=== PATIENT | male | born 1975 | race African-American/Black ===

== ENCOUNTER 2018-09-23 11:19 | Inpatient (IN) | payer MEDICAID, OTHER ==
[~2018-09-23] VITALS: Ht 170.2 cm; Wt 91.2 kg
[2018-09-23] MEDS ORDERED: NITROGLYCERIN OINT 1GM/INCH UDPKT TD ONE (12:00)
[2018-09-23] MEDS ORDERED: ASPIRIN 81MG TABLET PO ONE (12:00)
[2018-09-23 12:24] LABS: BASOPHILS % 0.8 % (0.0-2.0); EOSINOPHILS % 10.1 % (0.0-5.0); HEMATOCRIT. 47.8 % (42.0-52.0); HEMOGLOBIN. 15.7 g/dL (14.0-18.0); LYMPHOCYTES % 39.4 % (20.0-50.0); MEAN CORPUSCULAR HEMOGLOBIN 27.6 pg (28.0-32.0); MEAN CORPUSCULAR VOLUME 83.9 fL (80.0-94.0); MONOCYTES % 10.3 % (2.0-8.0); NEUTROPHILS % 39.4 % (40.0-76.0); PLATELET 146 x1000/uL (130-400); RED CELL DISTRIBUTION WIDTH 17.5 % (11.6-14.6)
[2018-09-23 12:30] LABS: CHLORIDE 109 mEq/L (98-107)
[2018-09-23 12:34] LABS: INR 1.3; PARTIAL THROMBOPLASTIN TIME 25.7 sec (23.4-31.0); PROTHROMBIN TIME 12.9 sec (9.6-11.0)
[2018-09-23] MEDS ORDERED: FUROSEMIDE 40MG/4ML VIAL IVP ONE (12:45)
[2018-09-23] MEDS ORDERED: ONDANSETRON HCL 4MG/2ML INJ IV PRN (14:30)
[2018-09-23] MEDS ORDERED: KETOROLAC 15MG/ML VIAL IV PRN (14:30)
[2018-09-23] MEDS ORDERED: CLONIDINE 0.1MG TABLET PO PRN (14:30)
[2018-09-23] MEDS ORDERED: ZOLPIDEM TARTRATE 5MG TABLET PO PRN (14:30)
[2018-09-23] MEDS ORDERED: MAGNESIUM/ALUMINUM HYDROXIDE/SIMETHICONE 30ML UDC PO PRN (14:30)
[2018-09-23] MEDS ORDERED: ACETAMINOPHEN 325MG TABLET PO PRN (14:30)
[2018-09-23] MEDS ORDERED: DOCUSATE SODIUM 100MG CAPSULE PO PRN (14:30)
[2018-09-23] MEDS ORDERED: NITROGLYCERIN 0.4MG TABLET SL SL PRN (14:30)
[2018-09-23] MEDS ORDERED: GUAIFENESIN 200MG/10ML SUGAR FREE UDC PO PRN (14:30)
[2018-09-23] MEDS ORDERED: IPRATROPIUM/ALBUTEROL 0.5-3(2.5)MG/3ML NEB INH PRN (14:30)
[2018-09-23 14:53] VITALS: BP 135/82
[2018-09-23 15:00] VITALS: BP 135/82
[2018-09-23] MEDS: IPRATROPIUM/ALBUTEROL 0.5-3(2.5)MG/3ML NEB HHN SCH ×2 (15:37→20:06)
[2018-09-23] MEDS ORDERED: ASPI-986 MT (16:09)
[2018-09-23] MEDS ORDERED: LOSA50TA3 MT (16:11)
[2018-09-23] MEDS ORDERED: FURO-151 PO (16:13)
[2018-09-23] MEDS ORDERED: POTA8CAP10 MT (16:24)
[2018-09-23 16:29] VITALS: BP 103/63
[2018-09-23 18:33] VITALS: BP 140/70
[2018-09-23] MEDS: MONTELUKAST SODIUM 10MG TABLET PO SCH (18:35)
[2018-09-23] MEDS: CARVEDILOL 3.125 MG TABLET PO SCH (18:35)
[2018-09-23] MEDS: FUROSEMIDE 40MG/4ML VIAL IVP SCH (18:37)
[2018-09-23 20:00] VITALS: BP 121/70
[2018-09-23] MEDS ORDERED: FAMOTIDINE 20MG/2ML VIAL IV SCH (21:00)
[2018-09-23] MEDS: GUAIFENESIN/DM 600MG/30MG ER TAB 12HR PO SCH (21:11)
[2018-09-23] MEDS: LISINOPRIL 5MG TABLET PO SCH (21:11)
[2018-09-23] MEDS: SPIRONOLACTONE 25MG TABLET PO SCH (21:11)
[2018-09-23] MEDS: FAMOTIDINE 20MG TABLET PO SCH (21:11)
[2018-09-23] MEDS: ENOXAPARIN 30MG/0.3ML SYR SUBCUT SCH (21:12)
[2018-09-23 23:05] LABS: CLARITY URINE CLEAR (CLEAR); COLOR URINE YELLOW (YELLOW); KETONES URINE NEGATIVE (NEGATIVE); LEUKOCYTE ESTERASE URINE NEGATIVE (NEGATIVE); NITRITE URINE NEGATIVE (NEGATIVE); OCCULT BLOOD URINE NEGATIVE (NEGATIVE); PH URINE 7.5 (4.5-8.0); PROTEIN URINE NEGATIVE (NEGATIVE); SPECIFIC GRAVITY URINE 1.004 (1.005-1.030); UROBILINOGEN URINE 0.2 E.U./dL (0.2-1.0)
[2018-09-23 23:16] LABS: *AMPHETAMINES SCREEN URINE NEGATIVE (NEGATIVE); *BARBITURATES SCREEN URINE NEGATIVE (NEGATIVE); *BENZODIAZEPINES SCREEN URINE NEGATIVE (NEGATIVE); *COCAINE SCREEN URINE NEGATIVE (NEGATIVE); METHADONE URINE SCREEN NEGATIVE (NEGATIVE)
[2018-09-23 23:17] LABS: CANNABINOID URINE SCREEN NEGATIVE (NEGATIVE); OPIATES URINE SCREEN NEGATIVE (NEGATIVE); PHENCYCLIDINE URINE SCREEN NEGATIVE (NEGATIVE)
[2018-09-24] VITALS (7 sets, daily range): BP systolic 103–127; BP diastolic 63–96
[2018-09-24 00:44] LABS: CREATINE KINASE MB FRACTION 2.2 ng/mL (0.5-3.6)
[2018-09-24] MEDS: IPRATROPIUM/ALBUTEROL 0.5-3(2.5)MG/3ML NEB HHN SCH ×4 (01:06→20:32)
[2018-09-24] MEDS: FUROSEMIDE 40MG/4ML VIAL IVP SCH ×2 (06:20→17:48)
[2018-09-24] MEDS: CARVEDILOL 3.125 MG TABLET PO SCH ×2 (06:21→17:47)
[2018-09-24 07:03] LABS: CREATINE KINASE 235 IU/L (39-308)
[2018-09-24 07:04] LABS: CREATINE KINASE MB FRACTION 2.1 ng/mL (0.5-3.6)
[2018-09-24] MEDS: ENOXAPARIN 30MG/0.3ML SYR SUBCUT SCH ×2 (08:48→21:39)
[2018-09-24] MEDS: ASPIRIN 325MG EC TABLET PO SCH (08:48)
[2018-09-24] MEDS: SPIRONOLACTONE 25MG TABLET PO SCH ×2 (08:48→21:37)
[2018-09-24] MEDS: FAMOTIDINE 20MG TABLET PO SCH ×2 (08:48→21:38)
[2018-09-24] MEDS: GUAIFENESIN/DM 600MG/30MG ER TAB 12HR PO SCH ×2 (08:48→21:37)
[2018-09-24] MEDS: LISINOPRIL 5MG TABLET PO SCH ×2 (08:48→21:38)
[2018-09-24] MEDS ORDERED: FURO40TA5 MT (16:52)
[2018-09-24] MEDS ORDERED: COR25 MT (16:52)
[2018-09-24] MEDS: MONTELUKAST SODIUM 10MG TABLET PO SCH (17:48)
[2018-09-25] VITALS: BP 106/61
[2018-09-25] MEDS: IPRATROPIUM/ALBUTEROL 0.5-3(2.5)MG/3ML NEB HHN SCH ×3 (02:02→13:23)
[2018-09-25 04:00] VITALS: BP 126/77
[2018-09-25] MEDS: CARVEDILOL 3.125 MG TABLET PO SCH (06:04)
[2018-09-25] MEDS: FUROSEMIDE 40MG/4ML VIAL IVP SCH (06:05)
[2018-09-25 08:10] VITALS: BP 98/64
[2018-09-25] MEDS: ASPIRIN 325MG EC TABLET PO SCH (08:32)
[2018-09-25] MEDS: GUAIFENESIN/DM 600MG/30MG ER TAB 12HR PO SCH (08:33)
[2018-09-25] MEDS: SPIRONOLACTONE 25MG TABLET PO SCH (08:33)
[2018-09-25] MEDS: FAMOTIDINE 20MG TABLET PO SCH (08:33)
[2018-09-25] MEDS: ENOXAPARIN 30MG/0.3ML SYR SUBCUT SCH (08:34)
[2018-09-25] MEDS: LISINOPRIL 5MG TABLET PO SCH (08:34)
[2018-09-25 11:41] VITALS: BP 102/58
[2018-09-25 14:51] VITALS: BP 102/58
[2018-09-25 16:16] VITALS: BP 104/58
== END 2018-09-25 16:30 | disposition home or self-care (01) | DRG 133 ==
LOC: ER 11:19 → 5WST 13:19 → EDBEDREQ 13:21 → EDBEDREQTM 13:21 → ENRESERV 13:47
PROVIDERS: ADMIT Internal Medicine; ATTEND Internal Medicine
DX: J96.00 Acute respiratory failure, unspecified whether with hypoxia or hypercapnia (principal); N17.0 Acute kidney failure with tubular necrosis; I50.43 Acute on chronic combined systolic (congestive) and diastolic (congestive) heart failure; E44.0 Moderate protein-calorie malnutrition; I13.0 Hypertensive heart and chronic kidney disease with heart failure and stage 1 through stage 4 chronic kidney disease, or unspecified chronic kidney disease; I25.10 Atherosclerotic heart disease of native coronary artery without angina pectoris; Z60.2 Problems related to living alone; I42.9 Cardiomyopathy, unspecified; R74.0 Nonspecific elevation of levels of transaminase and lactic acid dehydrogenase [LDH]; K21.9 Gastro-esophageal reflux disease without esophagitis; J45.909 Unspecified asthma, uncomplicated; N18.9 Chronic kidney disease, unspecified; Z95.5 Presence of coronary angioplasty implant and graft; Z95.810 Presence of automatic (implantable) cardiac defibrillator; Z79.82 Long term (current) use of aspirin; I25.2 Old myocardial infarction; Z79.899 Other long term (current) drug therapy; Z82.49 Family history of ischemic heart disease and other diseases of the circulatory system; Z68.31 Body mass index [BMI] 31.0-31.9, adult
CPT/HCPCS: 36415; 71045; 80061; 80305; 82550; 82553; 83036; 83880; 84484; 93005; 93970; 94640; 96374; 99285; J1650; J1940; J7620

== ENCOUNTER 2021-01-07 12:46 | Inpatient (IN) | payer MEDICAID ==
[~2021-01-07] VITALS: Ht 170.2 cm; Wt 99.8 kg
[~2021-01-07 12:46] MED LIST: ASPI-986 MT; COR25 MT; FURO40TA5 MT; LOSA50TA3 MT; POTA8CAP20 MT
[2021-01-07 15:03] LABS: CHLORIDE 103 mEq/L (98-107)
[2021-01-07 15:12] LABS: BASOPHILS % 0.3 % (0.0-2.0); EOSINOPHILS % 8.3 % (0.0-5.0); HEMATOCRIT. 38.5 % (42.0-52.0); HEMOGLOBIN. 12.7 g/dL (14.0-18.0); LYMPHOCYTES % 32.7 % (20.0-50.0); MEAN CORPUSCULAR HEMOGLOBIN 28.5 pg (28.0-32.0); MEAN CORPUSCULAR VOLUME 86.4 fL (80.0-94.0); MEAN PLATELET VOLUME 10.8 fl (7.4-10.4); NEUTROPHILS % 52.7 % (40.0-76.0); PLATELET 152 x1000/uL (130-400); RED BLOOD CELL COUNT 4.45 mill/uL (4.7-6.1); RED CELL DISTRIBUTION WIDTH 12.9 % (11.6-14.6)
[2021-01-07] MEDS ORDERED: POTASSIUM CHLORIDE 20MEQ TABLET SR PO ONE (15:15)
[2021-01-07 20:06] LABS: CANNABINOID URINE SCREEN NEGATIVE (NEGATIVE); METHADONE URINE SCREEN NEGATIVE (NEGATIVE); OPIATES URINE SCREEN NEGATIVE (NEGATIVE); PHENCYCLIDINE URINE SCREEN NEGATIVE (NEGATIVE)
[2021-01-07 20:07] LABS: *AMPHETAMINES SCREEN URINE NEGATIVE (NEGATIVE); *BENZODIAZEPINES SCREEN URINE NEGATIVE (NEGATIVE)
[2021-01-07 20:09] LABS: *BARBITURATES SCREEN URINE NEGATIVE (NEGATIVE); *COCAINE SCREEN URINE NEGATIVE (NEGATIVE)
[2021-01-07] MEDS: CARVEDILOL 6.25 MG TABLET PO SCH (21:37)
[2021-01-07] MEDS ORDERED: LORAZEPAM 2MG/ML CPJ IV PRN (23:00)
[2021-01-07] MEDS ORDERED: ONDANSETRON HCL 4MG/2ML INJ IV PRN (23:00)
[2021-01-07] MEDS ORDERED: MORPHINE SULFATE 2 MG/ML CPJ (NOT FOR IM USE) IV PRN (23:00)
[2021-01-07] MEDS ORDERED: IPRATROPIUM/ALBUTEROL 0.5-3(2.5)MG/3ML NEB NEB PRN (23:00)
[2021-01-07] MEDS ORDERED: ACETAMINOPHEN 650MG SUPP PR PRN (23:00)
[2021-01-07] MEDS ORDERED: DIPHENHYDRAMINE 50MG/ML VIAL IV PRN (23:00)
[2021-01-07] MEDS ORDERED: HYDROCODONE/ACETAMINOPHEN 5/325MG TABLET PO PRN (23:00)
[2021-01-07] MEDS ORDERED: ACETAMINOPHEN 325MG TABLET PO PRN (23:00)
[2021-01-07] MEDS: ENOXAPARIN 30MG/0.3ML SYR SUBCUT SCH (23:35)
[2021-01-08 04:36] LABS: BASOPHILS % 0.3 % (0.0-2.0); EOSINOPHILS % 9.3 % (0.0-5.0); HEMATOCRIT. 37.9 % (42.0-52.0); HEMOGLOBIN. 12.6 g/dL (14.0-18.0); MEAN CORPUSCULAR VOLUME 87.2 fL (80.0-94.0); MEAN PLATELET VOLUME 10.4 fl (7.4-10.4); MONOCYTES % 6.2 % (2.0-8.0); NEUTROPHILS % 47.2 % (40.0-76.0); PLATELET 147 x1000/uL (130-400); RED BLOOD CELL COUNT 4.35 mill/uL (4.7-6.1)
[2021-01-08 04:42] LABS: CHLORIDE 105 mEq/L (98-107)
[2021-01-08 04:48] LABS: PHOSPHORUS 3.7 mg/dL (2.5-4.9)
[2021-01-08 04:51] LABS: CREATINE KINASE 204 IU/L (39-308)
[2021-01-08 04:52] LABS: CREATINE KINASE MB FRACTION < 1.0 ng/mL (0.5-3.6)
[2021-01-08] MEDS ORDERED: MAGNESIUM/ALUMINUM HYDROXIDE/SIMETHICONE 30ML UDC PO PRN (08:30)
[2021-01-08] MEDS ORDERED: CLONIDINE 0.1MG TABLET PO PRN (08:30)
[2021-01-08] MEDS ORDERED: DEXTROSE 50% WATER 50ML SYRINGE IV PRN ×2 (08:30)
[2021-01-08] MEDS ORDERED: DOCUSATE SODIUM 100MG CAPSULE PO PRN (08:30)
[2021-01-08] MEDS: SPIRONOLACTONE 25MG TABLET PO SCH (08:53)
[2021-01-08] MEDS: THIAMINE HCL 100MG TABLET PO SCH (09:14)
[2021-01-08] MEDS: FOLIC ACID 1MG TABLET PO SCH (09:14)
[2021-01-08] MEDS: FUROSEMIDE 40MG TABLET PO SCH (09:14)
[2021-01-08] MEDS: ENOXAPARIN 30MG/0.3ML SYR SUBCUT SCH ×2 (09:33→22:31)
[2021-01-08] MEDS: CARVEDILOL 6.25 MG TABLET PO SCH ×2 (09:33→22:56)
[2021-01-08 10:36] LABS: TOTAL IRON BINDING CAPACITY 323 ug/dL (250-450)
[2021-01-08] MEDS: BLOOD SUGAR DIAGNOSTIC STRIP TEST SCH ×3 (11:30→21:00)
[2021-01-08] MEDS: INSULIN LISPRO 100 UNITS/ML SUBCUT SCH ×3 (12:00→22:32)
[2021-01-08 16:43] LABS: CREATINE KINASE MB FRACTION 1.3 ng/mL (0.5-3.6)
[2021-01-09] MEDS ORDERED: NALOXONE HCL 0.4MG/ML VIAL IV PRN (03:30)
[2021-01-09 04:35] VITALS: BP 137/90
[2021-01-09] MEDS: BLOOD SUGAR DIAGNOSTIC STRIP TEST SCH ×4 (07:20→21:00)
[2021-01-09 08:00] VITALS: BP 125/69
[2021-01-09] MEDS: INSULIN LISPRO 100 UNITS/ML SUBCUT SCH ×4 (08:54→22:29)
[2021-01-09] MEDS: FOLIC ACID 1MG TABLET PO SCH ×2 (08:56→09:04)
[2021-01-09] MEDS: CARVEDILOL 6.25 MG TABLET PO SCH ×3 (08:58→22:52)
[2021-01-09] MEDS: SPIRONOLACTONE 25MG TABLET PO SCH (09:04)
[2021-01-09] MEDS: THIAMINE HCL 100MG TABLET PO SCH (09:04)
[2021-01-09] MEDS: FUROSEMIDE 40MG TABLET PO SCH (09:04)
[2021-01-09] MEDS: ENOXAPARIN 30MG/0.3ML SYR SUBCUT SCH ×2 (09:05→21:00)
[2021-01-09 10:34] LABS: BASOPHILS % 0.3 % (0.0-2.0); EOSINOPHILS % 7.7 % (0.0-5.0); HEMOGLOBIN. 14.1 g/dL (14.0-18.0); LYMPHOCYTES % 35.5 % (20.0-50.0); MEAN CORPUSCULAR HEMOGLOBIN 28.9 pg (28.0-32.0); MEAN PLATELET VOLUME 10.8 fl (7.4-10.4); MONOCYTES % 6.1 % (2.0-8.0); NEUTROPHILS % 50.4 % (40.0-76.0); PLATELET 166 x1000/uL (130-400); RED BLOOD CELL COUNT 4.88 mill/uL (4.7-6.1)
[2021-01-09 10:36] LABS: CHLORIDE 97 mEq/L (98-107)
[2021-01-09 10:46] LABS: LDL CHOLESTEROL 144 mg/dL (5-100)
[2021-01-09 10:47] LABS: PHOSPHORUS 2.9 mg/dL (2.5-4.9)
[2021-01-09 10:49] LABS: HDL CHOLESTEROL 53 mg/dL (40-59)
[2021-01-09 12:00] VITALS: BP 123/90
[2021-01-09 16:00] VITALS: BP 108/84
[2021-01-09 20:00] VITALS: BP 125/82
[2021-01-09] MEDS ORDERED: INSULIN GLARGINE UD 100 UNITS/ML SYR SUBCUT SCH (22:00)
[2021-01-09] MEDS: AMIODARONE HCL 200 MG TABLET PO SCH (22:28)
[2021-01-10] VITALS: BP 132/81
[2021-01-10 04:00] VITALS: BP 133/80
[2021-01-10 06:19] LABS: BASOPHILS % 0.3 % (0.0-2.0); EOSINOPHILS % 7.9 % (0.0-5.0); HEMATOCRIT. 37.8 % (42.0-52.0); HEMOGLOBIN. 12.7 g/dL (14.0-18.0); LYMPHOCYTES % 37.3 % (20.0-50.0); MEAN CORPUSCULAR HEMOGLOBIN 29.1 pg (28.0-32.0); MEAN CORPUSCULAR VOLUME 86.4 fL (80.0-94.0); MEAN PLATELET VOLUME 10.7 fl (7.4-10.4); MONOCYTES % 8.5 % (2.0-8.0); PLATELET 152 x1000/uL (130-400); RED BLOOD CELL COUNT 4.37 mill/uL (4.7-6.1); RED CELL DISTRIBUTION WIDTH 12.6 % (11.6-14.6)
[2021-01-10 06:35] LABS: CHLORIDE 101 mEq/L (98-107)
[2021-01-10] MEDS: BLOOD SUGAR DIAGNOSTIC STRIP TEST SCH ×3 (06:36→16:38)
[2021-01-10 06:42] LABS: PHOSPHORUS 4.3 mg/dL (2.5-4.9)
[2021-01-10] MEDS: INSULIN LISPRO 100 UNITS/ML SUBCUT SCH ×3 (07:48→17:03)
[2021-01-10 08:05] VITALS: BP 134/79
[2021-01-10] MEDS: ENOXAPARIN 30MG/0.3ML SYR SUBCUT SCH (08:38)
[2021-01-10] MEDS: FOLIC ACID 1MG TABLET PO SCH (09:00)
[2021-01-10] MEDS: THIAMINE HCL 100MG TABLET PO SCH (09:00)
[2021-01-10] MEDS: FUROSEMIDE 40MG TABLET PO SCH (09:00)
[2021-01-10] MEDS: SPIRONOLACTONE 25MG TABLET PO SCH (09:00)
[2021-01-10] MEDS: AMIODARONE HCL 200 MG TABLET PO SCH (09:00)
[2021-01-10] MEDS ORDERED: VERAPAMIL HCL 2.5 MG/1 ML 2ML VIAL IV ONE (10:32)
[2021-01-10] MEDS ORDERED: HEPARIN 1000 UNITS/ML 10ML ONE (10:32)
[2021-01-10] MEDS ORDERED: FENTANYL CITRATE/PF 50MCG/ML 2ML VIAL ONE (10:32)
[2021-01-10] MEDS ORDERED: LIDOCAINE HCL 1% 10 MG/ML 10ML VIAL ONE (10:33)
[2021-01-10] MEDS ORDERED: MIDAZOLAM HCL 2 MG/2 ML VIAL ONE (10:33)
[2021-01-10] MEDS ORDERED: IODIXANOL 320MG/ML 100 ML BOTTLE IV ONE (10:34)
[2021-01-10] MEDS ORDERED: MIDAZOLAM HCL 5 MG/5 ML VIAL ONE (11:55)
[2021-01-10] MEDS ORDERED: FENTANYL CITRATE/PF 50MCG/ML 5ML VIAL ONE (11:55)
[2021-01-10] MEDS ORDERED: ACETAMINOPHEN 325MG TABLET PO PRN (12:00)
[2021-01-10] MEDS ORDERED: SODIUM CHLORIDE 0.45% 250 ML IV SCH (12:00)
[2021-01-10 16:03] VITALS: BP 125/54
[2021-01-10] MEDS ORDERED: AMI2 PO (17:57)
[2021-01-10] MEDS ORDERED: INSU1KIT MC (17:57)
[2021-01-10] MEDS ORDERED: SYRI-219 SQ (17:57)
[2021-01-10] MEDS ORDERED: LANTUSUD SUBCUT (17:57)
[2021-01-10] MEDS ORDERED: INSLIS SUBCUT (17:57)
[2021-01-10] MEDS ORDERED: LANC-30 TP (17:57)
[2021-01-10 18:26] VITALS: BP 125/54
== END 2021-01-10 20:00 | disposition home or self-care (01) | DRG 192 ==
LOC: ER 12:46 → MICUSO 15:04 → EDBEDREQSVC 01-08 08:30 → EDBEDREQDT 01-08 20:00 → EDBEDREQTM 01-08 20:00 → EDBEDREQSVC 01-08 20:00 → EDBEDREQTM 01-08 23:59 → EDBEDREQDT 01-09 00:01 → EDBEDREQSVC 01-09 00:01 → 6WST 01-09 03:17
PROVIDERS: ADMIT Internal Medicine Nephrology; ATTEND Internal Medicine Nephrology
PROC: 4B02XTZ Measurement of Cardiac Defibrillator, External Approach (ICD-10-PCS; 2021-01-08)
PROC: 4A023N7 Measurement of Cardiac Sampling and Pressure, Left Heart, Percutaneous Approach (ICD-10-PCS; principal; 2021-01-10)
PROC: B211YZZ Fluoroscopy of Multiple Coronary Arteries using Other Contrast (ICD-10-PCS; 2021-01-10)
DX: I49.01 Ventricular fibrillation (principal); I13.0 Hypertensive heart and chronic kidney disease with heart failure and stage 1 through stage 4 chronic kidney disease, or unspecified chronic kidney disease; I42.8 Other cardiomyopathies; I50.22 Chronic systolic (congestive) heart failure; E11.22 Type 2 diabetes mellitus with diabetic chronic kidney disease; I25.10 Atherosclerotic heart disease of native coronary artery without angina pectoris; B34.9 Viral infection, unspecified; I47.2 Ventricular tachycardia; E11.65 Type 2 diabetes mellitus with hyperglycemia; Z20.822 Contact with and (suspected) exposure to COVID-19; N18.9 Chronic kidney disease, unspecified; Z82.49 Family history of ischemic heart disease and other diseases of the circulatory system; Z95.810 Presence of automatic (implantable) cardiac defibrillator; Z79.82 Long term (current) use of aspirin; Z79.899 Other long term (current) drug therapy
CPT/HCPCS: 36415; 71045; 80048; 80053; 80061; 80076; 80305; 82550; 82553; 82962; 83036; 83540; 83550; 83735; 83880; 84100; 84439; 84443; 84484; 85025; 87426; 93005; 93306; 93458; 93970; 99285; C1769; C1887; C1893; J1644; J1650; J1815; J2250; J3010; J3490; Q9967